=== PATIENT | male | born 2000 | race African-American/Black ===

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

== ENCOUNTER 2020-01-12 08:00 | Outpatient (RCR) | payer MEDICAID ==
[~2020-01-12 08:00] MED LIST changes: +NAPROXEN 3375 MG/TAB PO; +NEURONTIN300 MG/CAP PO
== END 2020-01-23 10:29 | disposition home or self-care (01) ==
LOC: WSPT 08:00
DX: M54.16 Radiculopathy, lumbar region (principal); M21.372 Foot drop, left foot; W34.00XA Accidental discharge from unspecified firearms or gun, initial encounter

== ENCOUNTER 2020-12-07 04:43 | Inpatient (IN) | payer MEDICAID ==
[2020-12-07] VITALS (494 sets, daily range): BP systolic 92–115; BP diastolic 50–88; PULSE 90–121; TEMP 97.7–99.5; O2SAT 77–100
[~2020-12-07] VITALS: Ht 177.8 cm; Wt 66.3 kg
[2020-12-07 05:42] LABS: COLLECTION METHOD CLEAN CATCH
[2020-12-07 05:51] LABS: ARTERIAL BLD GAS O2 SATURATION 96.4 % (92-100); ARTERIAL BLD GAS TCO2 CT 18.6; ARTERIAL BLOOD GAS BASE EXCESS -14.1 (-2-2); ARTERIAL BLOOD GAS HCO3 16.8 meq/L (22-26); ARTERIAL BLOOD GAS PCO2 59.7 mmHg (35-45); ARTERIAL BLOOD GAS PO2 107.4 mmHg (80-100)
[2020-12-07 05:53] LABS: ARTERIAL BLOOD GAS pH 7.07 (7.35-7.45)
[2020-12-07 06:11] LABS: BASO # 0.1 K/mm3 (0.0-0.2); BASO % 0.4 % (0.0-2.0); EOS # 0.1 K/mm3 (0.0-0.7); EOS % 0.7 % (0-4.0); GRAN % 84.2 % (42.2-75.2); HEMATOCRIT 44.4 % (36.0-47.0); HEMOGLOBIN 13.9 g/dl (12.5-16.1); LYMPH # 1.4 K/mm3 (1.2-3.4); MEAN CELL VOLUME 95 fl (80.0-95.0); MEAN CORPUSCULAR HEMOGLOBIN 30 pg (26.0-32.0); MEAN CORPUSCULAR HGB CONC 31 g/dl (33.0-37.0); MEAN PLATELET VOLUME 10.4 fl (7.4-10.4); MONO % 5.4 % (1.7-9.3); PLATELET COUNT 203 K/mm3 (130-400); RED BLOOD COUNT 4.66 M/mm3 (4.20-5.60); REDCELL DISTRIBUTION WIDTH-CV 14.1 % (11.5-14.5)
[2020-12-07 06:16] LABS: MUCOUS Present /lpf; PH 5 (5-8); SQUAMOUS EPITHELIAL None Seen /hpf; URINE APPEARANCE Hazy; URINE BACTERIA None Seen /hpf; URINE BILIRUBIN Negative (NEGATIVE); URINE BLOOD Negative (NEGATIVE); URINE COLOR Yellow; URINE GLUCOSE 3+ (NEGATIVE); URINE KETONE Negative (NEGATIVE); URINE LEUKOCYTE ESTERASE Negative (NEGATIVE); URINE NITRATE Negative (NEGATIVE); URINE PROTEIN(semi-quant) 2+ (NEGATIVE); URINE RBC 0-2 /hpf; URINE UROBILINOGEN Negative (NEGATIVE)
[2020-12-07 06:26] LABS: TRICYCLIC ANTIDEPRESS URINE NEGATIVE
[2020-12-07 06:38] LABS: ALANINE AMINOTRANSFERASE 90 U/L (0-55); ALBUMIN 3.7 gm/dL (3.5-5.0); ALKALINE PHOSPHATASE 113 U/L (40-150); ANION GAP 10 mmol/L (7-16); AST,SGOT 98 U/L (5-34); BILIRUBIN,TOTAL 0.4 mg/dL (0.2-1.2); BLOOD UREA NITROGEN 21 mg/dL (9-21); CALCIUM 8.1 mg/dL (8.4-10.2); CARBON DIOXIDE 19 mmol/L (22-29); CHLORIDE 108 mmol/L (98-107); CREATINE KINASE 215 U/L (30-200); CREATININE, serum 1.52 mg/dL (0.72-1.25); GLUCOSE 242 mg/dL (70-99); SODIUM 137 mmol/L (136-145); TOTAL PROTEIN 7.1 gm/dL (6.2-8.1)
--- NOTE | 2020-12-07 06:45 | NUR ---
0645-PATIENT ARRIVED TO [facility] ICU-3, TRANSFERRED TO BED WITH 4 ASSIST AND CONNECTED TO MONITORS, NOTED PATIENT TO BY HYPOTHERMIC AT 95.9, YAMILA HUGGER REAPPLIED TO PATIENT, PATIENT ABLE TO OPEN EYES TO VOICE AND FOLLOW COMMANDS, MOUTHED A FEW WORDS AROUND TUBE AND ABLE TO NOD YES/NO TO [id number]. CRITICAL LAB OF POTASSIUM AT 6.8 REPORTED TO BRYAN DALE WHO IS REVIEWING THE CHART AND WILL ENTER ORDERS PATIENT'S MOTHER PERMITTED TO VISIT WITH PATIENT FOR A FEW MINUTES, INFORMED OF VISITING HOURS.
[2020-12-07 06:51] LABS: ACETAMINOPHEN < 1.0 ug/mL (10-30); ALCOHOL(ethanol),MEDICAL < 10 mg/dL (0-10); POTASSIUM 6.8 mmol/L (3.5-4.5); SALICYLATE < 5.0 mg/dL (15.0-30.0)
[2020-12-07 06:59] LABS: TSH w REFLEX 0.841 uIU/mL (0.350-4.940)
[2020-12-07 07:50] LABS: INR 1.2 (0.8-3.0); PROTHROMBIN TIME 12.9 SECONDS (9.7-12.8)
[2020-12-07 07:57] LABS: CALCIUM 8.5 mg/dL (8.4-10.2); CREATININE, serum 1.23 mg/dL (0.72-1.25)
[2020-12-07 07:59] LABS: POTASSIUM 6.2 mmol/L (3.5-4.5)
--- NOTE | 2020-12-07 08:00 | NUR ---
Dr. Brooks at bedside; notified about critical potassium level. Patient awake and on no sedation. Able to follow basic commands and has been able to communicate with staff by writing. Will draw another ABG and will make a determination of extubation based no ABG results.
--- NOTE | 2020-12-07 08:03 | NUR ---
Propofol placed on standby by Dr. Brooks. Will place on CPAP trial and re-draw an ABG.
[2020-12-07 08:37] LABS: ARTERIAL BLD GAS O2 SATURATION 98.4 % (92-100); ARTERIAL BLD GAS TCO2 CT 22.1; ARTERIAL BLOOD GAS BASE EXCESS -5.9 (-2-2); ARTERIAL BLOOD GAS HCO3 20.7 meq/L (22-26); ARTERIAL BLOOD GAS PCO2 44.8 mmHg (35-45); ARTERIAL BLOOD GAS pH 7.28 (7.35-7.45)
[2020-12-07 08:38] LABS: ARTERIAL BLOOD GAS PO2 131.8 mmHg (80-100)
--- NOTE | 2020-12-07 11:04 | NUR ---
Blood glucose 51. Hospitalist notified; WIll follow hypoglycemic protocol. Also notified about critical Troponin.
[2020-12-07 11:39] LABS: ARTERIAL BLD GAS O2 SATURATION 98.7 % (92-100); ARTERIAL BLD GAS TCO2 CT 22.1; ARTERIAL BLOOD GAS BASE EXCESS -1.6 (-2-2); ARTERIAL BLOOD GAS HCO3 21.2 meq/L (22-26); ARTERIAL BLOOD GAS PCO2 30.2 mmHg (35-45); ARTERIAL BLOOD GAS pH 7.46 (7.35-7.45)
[2020-12-07 11:40] LABS: ARTERIAL BLOOD GAS PO2 140.2 mmHg (80-100)
[2020-12-07 12:48] LABS: CALCIUM 8.4 mg/dL (8.4-10.2); CREATININE, serum 1.17 mg/dL (0.72-1.25); POTASSIUM 3.7 mmol/L (3.5-4.5)
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
--- NOTE | 2020-12-07 14:12 | NUR ---
Sedation decreased for CPAP trial. Patient awake and gagging on tube; observed reaching up towards the ET tube. Encouraged to stay calm. Dr. Brooks notified. Will draw ABG and then will make a determination to extubate based on ABG results.
[2020-12-07 14:19] LABS: ARTERIAL BLD GAS O2 SATURATION 98.4 % (92-100); ARTERIAL BLD GAS TCO2 CT 22.1; ARTERIAL BLOOD GAS BASE EXCESS -3.5 (-2-2); ARTERIAL BLOOD GAS PCO2 35.9 mmHg (35-45); ARTERIAL BLOOD GAS pH 7.38 (7.35-7.45)
[2020-12-07 14:20] LABS: ARTERIAL BLOOD GAS PO2 135.6 mmHg (80-100)
--- NOTE | 2020-12-07 14:43 | NUR ---
Patient extubated at this time per Dr. Brooks; tolerated well. hearing aid technician notified this RN just prior to extubation the patient was positive for COVID. Dr. Brooks also notified of positive covid results.
--- NOTE | 2020-12-07 15:00 | NUR ---
PT EXTUBATED AT 1443 TO ROOM AIR, PER ORDERS FROM DR. BOOKER
--- NOTE | 2020-12-07 16:15 | NUR ---
Patient admitted to to taking percocet 30's and xanax without a prescription from the "street". Denied attempting to harm himself or taking too many pills. States that "I was laced". Reported that the percocet he took "looked different than usual" but he still took it.
--- NOTE | 2020-12-07 16:15 | NUR ---
Hospitalist notified that patient was extubated. Tolerated well and on no oxygen currently. Also notified that patient came back positive for Covid 19.
--- NOTE | 2020-12-07 17:18 | NUR ---
Critical troponin not called due to trending downwards.
--- NOTE | 2020-12-07 19:30 | NUR ---
Received report from JERARDO Leonard. All medications verified and all questions answered. Patient in airborne/contact precautions d/t positive covid test result. VSS. No concerns or complaints noted at this time. Patient on room air watching TV while laying in bed. Will resume care of patient at this time.
[2020-12-08] VITALS (420 sets, daily range): BP systolic 95–112; BP diastolic 52–88; PULSE 66–121; TEMP 98.4–98.8; O2SAT 70–100
[2020-12-08 04:19] LABS: BASO % 0.5 % (0.0-2.0); EOS # 0.2 K/mm3 (0.0-0.7); EOS % 2.5 % (0-4.0); GRAN # 5.3 K/mm3 (1.4-6.5); GRAN % 67.3 % (42.2-75.2); LYMPH # 1.6 K/mm3 (1.2-3.4); LYMPH % 19.7 % (20.0-51.0); MEAN CORPUSCULAR HGB CONC 34 g/dl (33.0-37.0); MEAN PLATELET VOLUME 10.7 fl (7.4-10.4); MONO # 0.8 K/mm3 (0.1-0.6); MONO % 9.7 % (1.7-9.3); PLATELET COUNT 151 K/mm3 (130-400); RED BLOOD COUNT 3.71 M/mm3 (4.20-5.60); REDCELL DISTRIBUTION WIDTH-CV 14.4 % (11.5-14.5)
[2020-12-08 04:21] LABS: HEMATOCRIT 33.4 % (36.0-47.0); HEMOGLOBIN 11.2 g/dl (12.5-16.1); MEAN CELL VOLUME 90 fl (80.0-95.0); MEAN CORPUSCULAR HEMOGLOBIN 30 pg (26.0-32.0)
[2020-12-08 04:53] LABS: ALBUMIN 2.9 gm/dL (3.5-5.0); BILIRUBIN,TOTAL 0.6 mg/dL (0.2-1.2); CALCIUM 8.1 mg/dL (8.4-10.2); CREATININE, serum 0.83 mg/dL (0.72-1.25); POTASSIUM 3.5 mmol/L (3.5-4.5); TOTAL PROTEIN 5.6 gm/dL (6.2-8.1)
--- NOTE | 2020-12-08 08:00 | NUR ---
Resting in bed and watching TV. VS stable; reporting back pain but too soon to take PRN tylenol. Encouraged to reposition in bed. Denies any other complaints. Assisted to call for breakfast. Call light left within reach.
--- NOTE | 2020-12-08 10:30 | NUR ---
Notified by Donna infectious disease nurse specialist that patient was confirmed by the health department to be positive for Chlamydia. Hospitalist notified.
[2020-12-08] MEDS ORDERED: MONODOX100 PO (10:54)
[2020-12-08] MEDS ORDERED: NARCAN4 MG NS (10:55)
--- NOTE | 2020-12-08 15:03 | NUR ---
Pantograph Machine Operator attended clinical rounds with the team. Patient has tested positive for COVID. Hospitalist advised patient is on room air and can be discharged home today. Patient has Medicaid and has seen Dr. Chavez in the past. TOMI contacted Dr. Chavez's office and was advised they unfortunately cannot accept Medicaid. TOMI contacted Renae at [facility] and they will not be able to accept patient. TOMI had Aisha KURTZ ask patient if he has transportation and the means to travel to [place] as the [facility] in can schedule a quicker follow up then the [place] office. Patient reports that he is agreeable to [place]. TOMI contacted [facility] and scheduled an appointment for 12/20/20 @ 1400. JERARDO Leonard put appointment in discharge orders. TOMI faxed records to [facility]. TOMI spoke with Lolis, Behavioral Health RN at [facility] who advised she will also meet with patient and can follow up with him on available drug and alcohol treatments once he is out of quarantine. Discharge Plan: Home
--- NOTE | 2020-12-08 15:26 | NUR ---
Discharge packet and follow-up instructions discussed with patient. Removed IV's and all monitoring equipment. Escorted out to ER entrance. Girlfriend here to take patient home. Patient stable and in no distress upon transfer.
== END 2020-12-08 15:26 | disposition home or self-care (01) | DRG 917 ==
LOC: COL.ER 04:43 → ICU 05:57
PROVIDERS: Emergency Medicine; Internal Medicine; Internal Medicine Pulmonary Disease; Student in an Organized Health Care Education/Training Program; ADMIT Student in an Organized Health Care Education/Training Program
PROC: 0BH17EZ Insertion of Endotracheal Airway into Trachea, Via Natural or Artificial Opening (ICD-10-PCS; principal; 2020-12-07)
PROC: 5A1935Z Respiratory Ventilation, Less than 24 Consecutive Hours (ICD-10-PCS; 2020-12-07)
DX: T42.4X1A Poisoning by benzodiazepines, accidental (unintentional), initial encounter (principal); J96.00 Acute respiratory failure, unspecified whether with hypoxia or hypercapnia; U07.1 COVID-19; E87.2 Acidosis; N17.9 Acute kidney failure, unspecified; T50.991A Poisoning by other drugs, medicaments and biological substances, accidental (unintentional), initial encounter; J45.909 Unspecified asthma, uncomplicated; F32.A Depression, unspecified; E87.5 Hyperkalemia; D72.829 Elevated white blood cell count, unspecified; A74.9 Chlamydial infection, unspecified
CPT/HCPCS: 99223-AI; 99239; J0610; J0696; J1650; J1815; J2704; J3010; J7030

== ENCOUNTER 2020-12-31 21:04 | Emergency (ER) | payer MEDICAID ==
[~2020-12-31] VITALS: Ht 175.3 cm; Wt 54.5 kg
[~2020-12-31 21:04] MED LIST changes: +MONODOX100 PO; +NARCAN4 MG NS
[2020-12-31 22:04] LABS: BASO # 0.1 K/mm3 (0.0-0.2); BASO % 0.8 % (0.0-2.0); EOS # 0.2 K/mm3 (0.0-0.7); EOS % 2.4 % (0-4.0); GRAN # 5.1 K/mm3 (1.4-6.5); GRAN % 71.9 % (42.2-75.2); HEMATOCRIT 47.2 % (36.0-47.0); HEMOGLOBIN 15.7 g/dl (12.5-16.1); LYMPH # 1.3 K/mm3 (1.2-3.4); LYMPH % 18.5 % (20.0-51.0); MEAN CELL VOLUME 89 fl (80.0-95.0); MEAN CORPUSCULAR HEMOGLOBIN 30 pg (26.0-32.0); MEAN CORPUSCULAR HGB CONC 33 g/dl (33.0-37.0); MEAN PLATELET VOLUME 10.6 fl (7.4-10.4); MONO # 0.4 K/mm3 (0.1-0.6); PLATELET COUNT 250 K/mm3 (130-400); RED BLOOD COUNT 5.32 M/mm3 (4.20-5.60); REDCELL DISTRIBUTION WIDTH-CV 13.8 % (11.5-14.5)
[2020-12-31 22:26] LABS: ALANINE AMINOTRANSFERASE 9 U/L (0-55); ALCOHOL(ethanol),MEDICAL 10 mg/dL (0-10); ALKALINE PHOSPHATASE 97 U/L (40-150); ANION GAP 12 mmol/L (7-16); AST,SGOT 21 U/L (5-34); BILIRUBIN,TOTAL 0.8 mg/dL (0.2-1.2); BLOOD UREA NITROGEN 13 mg/dL (9-21); CALCIUM 9.8 mg/dL (8.4-10.2); CARBON DIOXIDE 21 mmol/L (22-29); CHLORIDE 107 mmol/L (98-107); GLUCOSE 98 mg/dL (70-99); POTASSIUM 4.5 mmol/L (3.5-4.5); SODIUM 140 mmol/L (136-145); TOTAL PROTEIN 8.7 gm/dL (6.2-8.1)
[2020-12-31 22:29] LABS: ACETAMINOPHEN < 1.0 ug/mL (10-30); SALICYLATE < 5.0 mg/dL (15.0-30.0)
[2020-12-31 22:44] LABS: COLLECTION METHOD CLEAN CATCH
[2020-12-31 23:04] LABS: TRICYCLIC ANTIDEPRESS URINE NEGATIVE
[2020-12-31 23:06] LABS: MUCOUS Present /lpf; PH 6 (5-8); SQUAMOUS EPITHELIAL None Seen /hpf; URINE APPEARANCE Clear; URINE BACTERIA None Seen /hpf; URINE BILIRUBIN Negative (NEGATIVE); URINE BLOOD Negative (NEGATIVE); URINE COLOR Yellow; URINE GLUCOSE Negative (NEGATIVE); URINE KETONE Trace (NEGATIVE); URINE LEUKOCYTE ESTERASE Negative (NEGATIVE); URINE NITRATE Negative (NEGATIVE); URINE PROTEIN(semi-quant) Negative (NEGATIVE); URINE RBC 0-2 /hpf
[2021-01-01 03:14] VITALS: BP 115/76; PULSE 91; TEMP 98.4
== END 2021-01-01 03:14 | disposition home or self-care (01) ==
LOC: COL.ER 21:04
PROVIDERS: Emergency Medicine
DX: F32.A Depression, unspecified (principal); S10.90XA Unspecified superficial injury of unspecified part of neck, initial encounter; T71.162A Asphyxiation due to hanging, intentional self-harm, initial encounter; J45.909 Unspecified asthma, uncomplicated; Z79.899 Other long term (current) drug therapy; Z79.51 Long term (current) use of inhaled steroids
CPT/HCPCS: J7030; Q9967

== ENCOUNTER 2021-04-08 03:11 | Emergency (ER) | payer MEDICAID ==
[~2021-04-08] VITALS: Ht 172.7 cm; Wt 54.5 kg
[2021-04-08 04:03] LABS: BASO % 0.2 % (0.0-2.0); GRAN # 10.9 K/mm3 (1.4-6.5); GRAN % 85.4 % (42.2-75.2); HEMOGLOBIN 17.8 g/dl (12.5-16.1); LYMPH % 7.4 % (20.0-51.0); MEAN CELL VOLUME 86 fl (80.0-95.0); MEAN CORPUSCULAR HEMOGLOBIN 29 pg (26-32); MEAN CORPUSCULAR HGB CONC 34 g/dl (33.0-37.0); MEAN PLATELET VOLUME 11.5 fl (7.4-10.4); MONO # 0.9 K/mm3 (0.1-0.6); MONO % 6.7 % (1.7-9.3); PLATELET COUNT 338 K/mm3 (130-400); RED BLOOD COUNT 6.14 M/mm3 (4.20-5.60); REDCELL DISTRIBUTION WIDTH-CV 14.3 % (11.5-14.5)
[2021-04-08 04:04] LABS: HEMATOCRIT 52.8 % (36.0-47.0)
[2021-04-08 04:27] LABS: ACETAMINOPHEN < 1.0 ug/mL (10-30); ALANINE AMINOTRANSFERASE 25 U/L (0-55); ALBUMIN 5.2 gm/dL (3.5-5.0); ALCOHOL(ethanol),MEDICAL < 10 mg/dL (0-10); ALKALINE PHOSPHATASE 103 U/L (40-150); ANION GAP 21 mmol/L (7-16); AST,SGOT 23 U/L (5-34); BILIRUBIN,TOTAL 1.2 mg/dL (0.2-1.2); BLOOD UREA NITROGEN 102 mg/dL (9-21); CALCIUM 10.7 mg/dL (8.4-10.2); CARBON DIOXIDE 22 mmol/L (22-29); CHLORIDE 95 mmol/L (98-107); CREATININE, serum 1.84 mg/dL (0.72-1.25); GLUCOSE 110 mg/dL (70-99); POTASSIUM 4.4 mmol/L (3.5-4.5); SALICYLATE < 5.0 mg/dL (15.0-30.0); SODIUM 138 mmol/L (136-145); TOTAL PROTEIN 10.5 gm/dL (6.2-8.1)
[2021-04-08 04:50] LABS: COLLECTION METHOD CLEAN CATCH
[2021-04-08 05:01] LABS: LIPASE 50 U/L (8-78)
[2021-04-08 05:05] LABS: MUCOUS Present (NOT PRESENT); PH 5 (5-8); SQUAMOUS EPITHELIAL 0-2 /hpf (0-10); URINE APPEARANCE Hazy (CLEAR/HAZY); URINE BACTERIA None Seen /hpf (NONE SEEN); URINE BILIRUBIN Negative (NEGATIVE); URINE BLOOD 2+ (NEGATIVE); URINE COLOR Yellow (YELLOW); URINE GLUCOSE Negative (NEGATIVE); URINE KETONE Trace (NEGATIVE); URINE LEUKOCYTE ESTERASE Negative (NEGATIVE); URINE NITRATE Negative (NEGATIVE); URINE PROTEIN(semi-quant) 2+ (NEGATIVE); URINE UROBILINOGEN Negative (NEGATIVE)
[2021-04-08 05:09] LABS: TRICYCLIC ANTIDEPRESS URINE NEGATIVE
[2021-04-08 07:35] VITALS: TEMP 98.5
[2021-04-08 09:16] VITALS: BP 112/71; PULSE 88
== END 2021-04-08 09:15 | disposition short-term general hospital (02) ==
LOC: COL.ER 03:11
PROVIDERS: Emergency Medicine
DX: J98.2 Interstitial emphysema (principal); N17.9 Acute kidney failure, unspecified; K22.3 Perforation of esophagus; D72.829 Elevated white blood cell count, unspecified; R74.8 Abnormal levels of other serum enzymes; Z20.822 Contact with and (suspected) exposure to COVID-19; Z79.899 Other long term (current) drug therapy
CPT/HCPCS: J1885; J2270; J2405; J2543; J3370; J3480; J7030; J7050; J7120; Q9967